=== PATIENT | male | born 1935 | race Caucasian/White ===

== ENCOUNTER 2016-03-03 19:15 | Emergency (ER) | payer MEDICARE, MEDICAID ==
[~2016-03-03] VITALS: Ht 170.2 cm; Wt 74.4 kg
[~2016-03-03 19:15] MED LIST: ACETAMINOPHEN325 M1 PO; ALLOPURINOL100 M1 PO; ASPIRIN 81MG TA81 MG PO; ATENOLOL100 MG PO; ATENOLOL50 MG PO; AZITHROMYCIN250 MG PO; CARDURA 4MG TABL4 MG PO; CENTRUM SILVER1 TAB PO; CIPRO 500MG TA500 MG PO; DESOXIMETASONE 0.05% TP; DORYX100 MG PO; DOXAZOSIN4 MG PO; DOXYCYCLINE100 M1 PO; FAMOTIDINE 20MG20 MG PO; FLAGYL 500MG.500 MG PO; GABAPENTIN100 M1 PO; GAS RELIEF EXT125 MG PO; HYDROCHLOROTHIA25 M1 PO; INDOMETHACIN50 MG PO; KEFLEX 500MG.500 MG PO; LASIX 40MG. TAB40 MG PO; LASIX40 MG PO; LEVOTHYROXINE0.05 MG PO; LORATADINE 10MG10 M1 PO; LORTAB 5/500 501 TAB PO; MELOXICAM15 MG PO; MULTI VITAMINS1 TA1 PO; PLAVIX75 MG PO; POTASSIUM CHLO10 ME3 PO; PRAVASTATIN 40M40 MG PO; PRAVASTATIN40 MG PO; STERAPRED5 MG PO; TORSEMIDE 20MG20 MG PO; TYLENOL W/CODEI1 TA2 PO; VICODIN 5/500 T1 TAB PO; ZOFRAN ODT4 MG PO
[2016-03-03 19:44] LABS: URINE BILIRUBIN - DIPSTICK NEGATIVE (NEG); URINE BLOOD NEGATIVE (NEG)
[2016-03-03 20:14] LABS: BUN 20 mg/dL (7-18)
[2016-03-03 20:15] LABS: GFR (ESTIMATED) 36 ML/MIN (>60)
--- NOTE | 2016-03-03 20:27 | Emergency Room Report ---
History of Present Illness Time Seen by 2020 Presenting Problem in Triage Pt arrived:Walked Presenting Problem:GRAND-DAUGHTER ADVISES THAT PT HAS HAD A COUGH FOR A WEEK AND A HALF THAT HAS BEEN GETTING WORSE. PT ADVISES THAT IT HURTS IN HIS CHEST WHEN HE COUGHS. 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 N Clinical Suspician of Infection? N Mental Status: 1 - Regular (Normal Baseline) Sepsis Risk:Low Sepsis Risk Have you (or family members/close friends) recently traveled outside the [place]? N If Yes, where/when: Have you had exposure to infectious disease within the past month? N TB? Other? Specify: Source patient, family Comment The patient is been sick for more than a week. He started out with a head cold and saw his primary care physician on Tuesday. He saw a nurse practitioner and family states "she didn't give him nothing". Since then he has worsened, now has a cough and complains of some chest pain with cough. No fever. He also has a hoarse voice. Primary care physician was called but could not get him in today but did call in a prescription for Keflex, of which he has taken one. Currently he denies pain or shortness of breath. ALLERGIES Coded Allergies: Penicillins (I-RASH 03/12/15) influenza virus vaccine, specific (INFLUENZA VIRUS VACC,SPECIFIC) (03/12/15) Home Medications Active Scripts Atenolol (Atenolol) 25 MG PO BID #60 TAB Ref 1 Prov: 12/13/14 Reported Medications ASPIRIN (Aspirin) 81 MG PO DAILY Clopidogrel Bisulfate (Plavix) 75 MG PO DAILY TORSEMIDE (Torsemide 20MG) 20 MG PO DAILY PRAVASTATIN SODIUM (Pravastatin Sodium) 40 MG PO QHS ALLOPURINOL (Allopurinol 100MG) 100 MG PO DAILY MULTIVIT,THER IRON,CA,FA & MIN (Sm Therapeutic M Tablet) 1 TAB PO DAILY Gabapentin (Gabapentin 100MG) 100 MG PO TID Acetaminophen 325 MG PO TID Famotidine (Famotidine 20MG) 20 MG PO DAILY Doxazosin Mesylate (Cardura 4MG Tablet) 2 MG PO QHS Furosemide (Lasix 40MG) 40 MG PO BID POTASSIUM CHL (Potassium Chloride) 10 MEQ PO BID Levothyroxine Sodium (Levothyroxine) 0.05 MG PO DAILY Simethicone (Gas Relief) 125 MG PO QID #90 History Medical History General CAD? Yes Angina: No [place]: No Hypertension? Yes Hyperlipidemia? Yes CHF? No DVT? No PE? No COPD? No Asthma? No Anemia? No GERD? No Gastric ulcers? No GI Bleed? No Hernia? No Thyroid Problems? Yes Hypothyroidism? Yes CVA? No Seizures? No Diabetes? No Insulin Dependent: No Insulin Pump: No Home FSBS? No Renal Insuffiency? No End Stage Renal Disease? No UTI? No Stones? No BPH? No GB Disease: Yes Nephritic Syndrome? No Asplenia? No Hepatitis? No Sickle Cell Disease? No Arthritis? No Migraines? No Cataracts? Yes Glaucoma? No MRSA? No HIV? No TB? No Anxiety? No Depression? No Cancer? No More? 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 Respiratory cough, denies shortness of breath Physical Exam Vital Signs Vital Signs Date Time Temp Pulse Resp B/P Pulse O2 O2 Flow FiO2 Ox Delivery Rate 03/03 2014 75 16 169/74 99 03/03 1919 97.5 81 18 161/75 97 General Appearance normal appearance, WD/WN Eye Exam - bilateral eye normal exam, bilateral eye PERRL, bilateral eye EOMI Ear, Nose, Throat hearing grossly normal, normal ENT inspection Neck normal inspection, non-tender, supple, full range of motion Respiratory Status Yes: trachea midline, chest symmetrical, non tender chest. No: respiratory distress. Lung Sounds bilateral: normal breath sounds, lungs clear. 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 No Results/Orders Laboratory Tests 03/03/161929: Lactic Acid Pending 03/03/161929: Sodium 139, Potassium 3.6, Chloride 101, Carbon Dioxide 30, BUN 20 H, Creatinine 1.8 H, Estimated Creat Clear 33 L, Estimated GFR (MDRD) 36, Glucose 154 H, Calcium 8.8, Total Bilirubin 0.3, AST 21, ALT 20, Alkaline Phosphatase 127 H, Creatine Kinase 310 H, CK-MB (CK-2) Rel Index 0.3, CK and CKMB Interp 1.0, Troponin I < 0.02, Total Protein 7.4, Albumin 3.6, Globulin 3.8 H, Albumin /Globulin Ratio 0.9 L, WBC 7.8, RBC 3.12 L, Hgb 9.9 L, Hct 29.2 L, MCV 93.7, RDW 17.9 H, Plt Count 317, Gran % 71.3, Gran # 5.6, Lymphocytes % 21.1, Monocytes % 7.6, Lymphocytes # 1.6, Monocytes # 0.6, PUBS MCHC 33.9, MCH 31.7 H , Urine Color YELLOW, Urine Appearance CLEAR, Urine pH 6.0, Ur Specific [place] 1.010, Urine Protein NEGATIVE, Urine Ketones NEGATIVE, Urine Blood NEGATIVE, Urine Nitrate NEGATIVE, Urine Bilirubin NEGATIVE, Urine Urobilinogen 0.2, Ur Leukocyte Esterase NEGATIVE, Urine Bacteria TRACE, Urine Glucose NEGATIVE Current Medication Orders Sig/Dawn Start time Last Medication Dose Route Stop Time Status Admin Sodium Chloride 10 ML PRN PRN 03/03 1929 AC IV 03/04 1919 Orders Procedure Date/time Status ELECTROCARDIOGRAM REQUEST 03/03 1919 Active CHEST(2 VIEWS-NOT PORTABLE) 03/03 1919 Active IV SALINE LOCK 03/03 1919 Active CULTURE, BLOOD 03/03 1919 Active URINALYSIS/COMPLETE 03/03 1919 Complete LACTIC ACID 03/03 1919 Active COMPLETE METABOLIC PANEL 03/03 1919 Complete CBC WITH AUTO DIFF 03/03 1919 Complete CARDIAC ENZYMES 03/03 1919 Complete CM/EKG CM/EKG Comments EKG interpreted by Nathen Zhu MD: Rhythm: sinus, also evidence of electronic atrial pacemaker beats Rate: 75 [place]: normal Ectopy: none Conduction: First-degree AV block ST Segment Changes: none T Wave Changes: Inversion anterior, lateral, and inferior, unchanged from prior electrocardiogram Q Waves: Inferior No evidence of acute ischemia or injury XRAY/CT/US XRAY/CT/US XRAY chest Comment X-ray interpreted by Nathen Zhu M.D. No infiltrate, pneumothorax, pleural effusion, or wide mediastinum. Pacemaker present. Nodule RIGHT upper lobe. Progress - I discussed possible nodule on his chest x-ray and need for follow-up with his primary care physician for this. Laboratory work is stable. I feel he can be discharged for follow-up with his primary care physician. Advised to call tomorrow. Continue Keflex. Departure Departure Disposition DC Home or Self Care(routine) Clinical Impression Primary Impression: Acute bronchitis Qualifiers: Bronchitis organism: unspecified organism Qualified Code: J20.9 - Acute bronchitis, unspecified Secondary Impressions: Pulmonary nodule Condition STABLE Referrals Lawrence Ahn MD (Family) Patient Instructions DI for Acute Bronchitis, DI for Pulmonary Nodule Additional Instructions Continue Keflex. Call your primary care physician tomorrow to arrange further follow-up. Follow-up with your physician for further evaluation of possible nodule on chest x-ray. ED Critical Care Critical Care No at 2039
[2016-03-03 20:31] LABS: HEMOGLOBIN 9.9 g/dL (14.1-18.0)
[2016-03-03 20:32] LABS: LYMPH # 1.6 K/mm3 (0.7-4.5); LYMPH % 21.1 % (10-50)
[2016-03-03 20:44] VITALS: BP 169/74
--- NOTE | 2016-03-04 04:41 | RADIOLOGY REPORT PS360 ---
CHEST(2 VIEWS-NOT PORTABLE) HISTORY: COUGH COMPARISON: 12/10/2014 FINDINGS: Bipolar pacemaker is present. Normal heart size. No evidence of CHF.. A 15 mm nodular opacity is noted overlying the right upper lobe. This is well circumscribed and could represent an overlying artifact. Developing pulmonary nodule however cannot be excluded. Follow-up upright PA and lateral chest recommended with additional exit there is nothing on the patient. If this persists then, CT will be needed for further evaluation. No lobar consolidation or collapse.. 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 IMPRESSION: 15 mm right upper lobe nodular opacity consistent with developing pulmonary nodule or artifact. Follow-up chest x-ray recommended to ensure that it is on the patient. If this persists then CT will be needed..
== END 2016-03-03 20:45 | disposition home or self-care (01) ==
LOC: ER 19:15
PROVIDERS: Emergency Medicine
DX: J20.9 Acute bronchitis, unspecified (principal); R91.1 Solitary pulmonary nodule; I10 Essential (primary) hypertension; I25.10 Atherosclerotic heart disease of native coronary artery without angina pectoris

== ENCOUNTER 2016-04-04 10:48 | Emergency (ER) | payer MEDICARE, MEDICAID ==
[~2016-04-04] VITALS: Ht 170.2 cm; Wt 74.4 kg
[2016-04-04 11:23] LABS: HEMOGLOBIN 10.4 g/dL (14.1-18.0); LYMPH % 14.5 % (10-50)
[2016-04-04 11:24] LABS: URINE BILIRUBIN - DIPSTICK NEGATIVE (NEG); URINE BLOOD NEGATIVE (NEG)
[2016-04-04 11:28] LABS: URINE SQUAMOUS CELLS OCC #/hpf (OCC)
--- NOTE | 2016-04-04 14:48 | Emergency Room Report ---
History of Present Illness Time Seen by [id number] Presenting Problem in Triage Pt arrived:Walked Presenting Problem:PT STATES STOMACH CRAMPS THAT BEGAN TUESDAY. DENIES VOMITING OR DIARRHEA. DENIES TREATMENT PRIOR TO ARRIVAL. STATES LAST BM WAS YESTERDAY AND IT WAS NORMAL, AND HAS BEEN NORMAL PAST COUPLE OF DAYS. 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 N Clinical Suspician of Infection? N Mental Status: 1 - Regular (Normal Baseline) Sepsis Risk:Low Sepsis Risk Have you (or family members/close friends) recently traveled outside the [place]? N If Yes, where/when: Have you had exposure to infectious disease within the past month? N TB? Other? Specify: Source patient, RN notes reviewed, family, old records Exam Limitations no limitations Comment over the last few days stomach cramps with no current vomiting or diarrhea and presents for eval Cardiac Chest Pain Chest pain indicative of cardiac No Timing/Duration this afternoon Severity moderate ALLERGIES Coded Allergies: Penicillins (I-RASH 03/12/15) influenza virus vaccine, specific (INFLUENZA VIRUS VACC,SPECIFIC) (03/12/15) Home Medications Active Scripts Atenolol (Atenolol) 25 MG PO BID #60 TAB Ref 1 Prov: 12/13/14 Reported Medications ASPIRIN (Aspirin) 81 MG PO DAILY Clopidogrel Bisulfate (Plavix) 75 MG PO DAILY TORSEMIDE (Torsemide 20MG) 20 MG PO DAILY PRAVASTATIN SODIUM (Pravastatin Sodium) 40 MG PO QHS ALLOPURINOL (Allopurinol 100MG) 100 MG PO DAILY MULTIVIT,THER IRON,CA,FA & MIN (Sm Therapeutic M Tablet) 1 TAB PO DAILY Gabapentin (Gabapentin 100MG) 100 MG PO TID Acetaminophen 325 MG PO TID Famotidine (Famotidine 20MG) 20 MG PO DAILY Doxazosin Mesylate (Cardura 4MG Tablet) 2 MG PO QHS Furosemide (Lasix 40MG) 40 MG PO BID POTASSIUM CHL (Potassium Chloride) 10 MEQ PO BID Levothyroxine Sodium (Levothyroxine) 0.05 MG PO DAILY Simethicone (Gas Relief) 125 MG PO QID #90 History Medical History General CAD? Yes Angina: No [place]: No Hypertension? Yes Hyperlipidemia? Yes CHF? No DVT? No PE? No COPD? No Asthma? No Anemia? No GERD? No Gastric ulcers? No GI Bleed? No Hernia? No Thyroid Problems? Yes Hypothyroidism? Yes CVA? No Seizures? No Diabetes? No Insulin Dependent: No Insulin Pump: No Home FSBS? No Renal Insuffiency? No End Stage Renal Disease? No UTI? No Stones? No BPH? No GB Disease: Yes Nephritic Syndrome? No Asplenia? No Hepatitis? No Sickle Cell Disease? No Arthritis? No Migraines? No Cataracts? Yes Glaucoma? No MRSA? No HIV? No TB? No Anxiety? No Depression? No Cancer? No More? No Immunization Hx DT/Tetanus 1-4 Years Ago Flu Refused Pneumonia Never Had Surgical Hx Previous Surgery?Y RT CAROTIDECTOMY RT CATARACT REMOVED CYST RIGHT NECK STENT LT KIDNEY GALL BLADDER RIGHT HIP REPAIR PACEMAKER Family History Family Hx Diabetes No CAD No Hypertension No Hyperlipidemia No Cancer No TB No Social History Smoking Hx Smoker: Never Smoker Tobacco: No Alcohol Alcohol: No Drugs none Review of Systems All Other Systems Reviewed and Negative Constitutional denies fever Eyes denies drainage ENT denies: ear pain, epistaxis, throat pain. Respiratory denies cough, denies shortness of breath, denies wheezing Cardiovascular denies chest pain, denies palpitations, denies syncope Gastrointestinal see HPI, abdominal pain, denies diarrhea, denies nausea, other Genitourinary denies: dysuria, frequency, hesitancy, hematuria, scrotal/testicular pain. Musculoskeletal denies back pain, denies joint pain, denies joint swelling, denies neck pain Skin denies rash Psychiatric/Neurological denies headache, denies seizure Physical Exam Vital Signs Vital Signs Date Time Temp Pulse Resp B/P Pulse O2 O2 Flow FiO2 Ox Delivery Rate 04/04 1538 98.5 81 20 131/78 95 04/04 1448 98.5 81 20 131/78 95 04/04 1401 98.5 70 20 139/68 99 04/04 1321 98.2 73 20 148/67 100 04/04 1238 97.9 71 20 134/68 100 04/04 1053 97.6 70 20 158/68 99 - WBC >12,000 or <4,000 or 10% bands? 2 or more SIRS Criteria Met? B/P:131/78 MAP:98 Creatinine >2.0? UA output<0.5ml/kg/hr for 2 hrs? Platelet count >100,000? Lactate >2.0mmol/1? INR >1.2 or PTT > than 60 sec? Evidence of Organ Dysfunction? Provider documented clinical suspician of infection? N Sepsis Criteria Count: 1 Sepsis Risk: Low Sepsis Risk General Appearance no apparent distress Eye Exam - bilateral eye PERRL, bilateral eye EOMI Ear, Nose, Throat normal ENT inspection Neck non-tender Respiratory Status No: respiratory distress. Lung Sounds bilateral: lungs clear. 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 No Results/Orders Laboratory Tests 04/04/16 1115: Urine Color YELLOW, Urine Appearance CLEAR, Urine pH 7.0, Ur Specific [place] 1.015, Urine Protein NEGATIVE, Urine Ketones NEGATIVE, Urine Blood NEGATIVE, Urine Nitrate NEGATIVE, Urine Bilirubin NEGATIVE, Urine Urobilinogen 2.0, Ur Leukocyte Esterase NEGATIVE, Urine RBC OCC, Urine WBC 3-5, Ur Squamous Epith Cells OCC, Urine Bacteria TRACE, Urine Mucus 1+, Urine Glucose NEGATIVE 04/04/16 1110: Sodium 138, Potassium 4.2, Chloride 102, Carbon Dioxide 29, BUN 21 H, Creatinine 1.4 H, Estimated Creat Clear 43 L, Estimated GFR (MDRD) 49, Glucose 162 H, Calcium 8.5, Total Bilirubin 0.5, AST 15, ALT 21, Alkaline Phosphatase 101, Total Protein 7.0, Albumin 3.4, Globulin 3.6 H, Albumin/Globulin Ratio 0.9 L, WBC 7.0, RBC 3.25 L, Hgb 10.4 L, Hct 30.9 L, MCV 94.8, RDW 16.6, Plt Count 240, MPV 7.7, Gran % 79.2, Gran # 5.6, Lymphocytes % 14.5, Monocytes % 6.0 , Eosinophils % 0.2, Basophils % 0.1, Lymphocytes # 1.0, Monocytes # 0.4, Eosinophils # 0.0, Basophils # 0.0, PUBS MCHC 33.6, MCH 31.9 H Orders Procedure Date/time Status DIET-NOTHING BY MOUTH 04/[address] ABD & PELVIS W/O CONTRAST 04/[address] SCAN REQ 04/04 1454 Complete URINALYSIS/COMPLETE 04/04 1054 Complete CBC WITH AUTO DIFF 04/04 105 Complete CHEM 12 PROFILE 04/04 1054 Complete XRAY/CT/US XRAY/CT/US CT abdomen, pelvis CT interpretation by discussed w/radiologist Time results known: 164 CT Results abnormal (see report) Departure Departure Time of Disposition 164 Disposition DC Home or Self Care(routine) Clinical Impression Primary Impression: Abdominal pain Qualifiers: Abdominal location: generalized Qualified Code: R10.84 - Generalized abdominal pain Secondary Impressions: Anemia Qualifiers: Anemia type: unspecified type Qualified Code: D64.9 - Anemia, unspecified Renal insufficiency Condition STABLE Referrals Lawrence Ahn MD (Family) Patient Instructions DI for Abdominal Pain-Adult Additional Instructions fluids and call your pcp for follow up Discharge Counseling Counseled pt/family regarding diagnosis, test results, follow up needs ED Critical Care Critical Care No at 1645
[2016-04-04 16:59] VITALS: BP 153/80
--- NOTE | 2016-04-05 06:38 | RADIOLOGY REPORT PS360 ---
CT ABD PELVIS W/O CONTRAST ORDERING PHYSICIAN : Berry Malagon MD PATIENT AGE: 81 years GENDER: Male INDICATION: ABDOMEN PAIN Abdominal pain 3 days TECHNIQUE: Helical CT scanning through abdomen pelvis with no oral nor IV contrast COMPARISON: FINDINGS Lower thorax. Mild basilar atelectasis. Mild cardiomegaly coronary artery calcification. Liver unremarkable. Spleen. Upper normal size. Pancreas satisfactory small Gallbladder is been removed. Atherosclerotic calcifications at aorta. Probable left renal artery stent Kidneys. Mild diffuse cortical thinning. No hydronephrosis. Left kidney: Nonobstructive calculus . Small thin pair of nonobstructive calculi measuring ~5 mm transverse X 2 mm seen posteriorly at mid left kidney.. Unchanged as prior study. Ureters unremarkable bilaterally as is bladder. GI tract. No bowel dilatation or obstruction . No mucosal thickening Moderate stool gas throughout colon. Minimal Diverticulosis sigmoid and left colon but no diverticulitis. No good evidence of appendicitis. Appendix is upper normal caliber base but appears similar to previous study the small thin calcification/appendicolith versus contrast seen at base of appendix. Multilevel prominent degenerative disc changes throughout the lumbar spine most pronounced L3/4. The ORIF right hip again noted IMPRESSION.--------- No acute findings in abdomen or pelvis. Nonobstructive smaller calculus posterior left kidney No evidence of appendicitis suspect small appendicolith at base of the appendix on this study. Cholecystectomy.
== END 2016-04-04 16:59 | disposition home or self-care (01) ==
LOC: ER 10:48
PROVIDERS: Emergency Medicine
DX: R10.84 Generalized abdominal pain (principal); D64.9 Anemia, unspecified; I10 Essential (primary) hypertension; I25.10 Atherosclerotic heart disease of native coronary artery without angina pectoris

== ENCOUNTER → 2016-05-31 | Outpatient (CLI) | payer MEDICARE, MEDICAID ==
[2016-05-31 14:02] LABS: HEMOGLOBIN 10.7 g/dL (14.1-18.0); LYMPH # 0.9 K/mm3 (0.7-4.5)
[2016-05-31 14:11] LABS: URINE BILIRUBIN - DIPSTICK NEGATIVE (NEG); URINE BLOOD NEGATIVE (NEG)
[2016-05-31 14:25] LABS: URINE SQUAMOUS CELLS OCC #/hpf (OCC)
[2016-05-31 15:00] LABS: BUN 18 mg/dL (7-18)
[2016-05-31 15:13] LABS: GFR (ESTIMATED) 49 ML/MIN (>60)
[2016-06-01 06:37] LABS: Vitamin D, 25-Hydroxy 37.7 ng/mL (30.0-100.0)
[2016-06-01 09:37] LABS: Creatinine, Urine 160.1 mg/dL (Not Estab.); Microalbumin, Urine 16.3 ug/mL (Not Estab.)
[2016-06-01 10:39] LABS: Calcium, Ionized 4.9 mg/dL (4.5-5.6)
== END ==
LOC: LAB 13:20
PROVIDERS: Internal Medicine Nephrology
DX: N18.3 Chronic kidney disease, stage 3 (moderate) (principal); D64.9 Anemia, unspecified